=== PATIENT | female | born 1945 | race Two or more races ===

== ENCOUNTER 2021-12-10 08:00 | Outpatient (CLI) | payer OTHER ==
[~2021-12-10 08:00] MED LIST: AMARIL; CIPRO500 MG PO; CLONAZEPAM0.5 MG PO; DALMANE30 MG PO; ENALAPRIL MALE2.5 MG PO; ESTAZOLAM2 MG PO; GLUCOPHAGE XR500 MG; GLUCOPHAGE XR500 MG PO; LIPITOR40 MG PO; RISPERDAL1 MG PO; SIMVASTATIN20 MG PO; SYMBALTA; TENORMIN25 MG PO; [UNRECOGNIZED DRUG - OTHER]; [UNRECOGNIZED DRUG - OTHER]; [UNRECOGNIZED DRUG - OTHER]
== END 2021-12-10 08:30 | disposition home or self-care (01) ==
LOC: PPH VACUNA 08:00
PROVIDERS: ATTEND Emergency Medicine Pediatric Emergency Medicine
DX: Z23 Encounter for immunization (principal)

== ENCOUNTER 2022-05-30 08:18 | Emergency (ER) | payer OTHER ==
[~2022-05-30] VITALS: Ht 154.9 cm; Wt 65.8 kg
== END 2022-05-30 09:45 | disposition home or self-care (01) ==
LOC: ER 08:18
DX: M79.89 Other specified soft tissue disorders (principal)

== ENCOUNTER 2022-06-09 12:56 | Emergency (ER) | payer OTHER ==
[~2022-06-09] VITALS: Ht 154.9 cm; Wt 45.4 kg
== END 2022-06-09 13:59 | disposition home or self-care (01) ==
LOC: ER 12:56
DX: I73.9 Peripheral vascular disease, unspecified (principal); E11.9 Type 2 diabetes mellitus without complications; Z79.84 Long term (current) use of oral hypoglycemic drugs; I10 Essential (primary) hypertension

== ENCOUNTER → 2022-06-11 | Emergency (ER) | payer OTHER ==
[~2022-06-11] VITALS: Ht 170.2 cm; Wt 76.7 kg
== END | disposition left against medical advice (07) ==
LOC: ER 05:07
DX: L03.116 Cellulitis of left lower limb (principal); E11.9 Type 2 diabetes mellitus without complications; I10 Essential (primary) hypertension

== ENCOUNTER 2022-06-14 07:00 | Emergency (ER) | payer OTHER ==
[~2022-06-14] VITALS: Ht 162.6 cm; Wt 45.4 kg
[2022-06-14] MEDS ORDERED: MUPIROCIN15 GM TOP (13:39)
== END 2022-06-14 13:47 | disposition home or self-care (01) ==
LOC: ER 07:00
DX: N30.90 Cystitis, unspecified without hematuria (principal); K57.30 Diverticulosis of large intestine without perforation or abscess without bleeding; E11.9 Type 2 diabetes mellitus without complications; Z79.84 Long term (current) use of oral hypoglycemic drugs; I10 Essential (primary) hypertension; F32.9 Major depressive disorder, single episode, unspecified

== ENCOUNTER 2024-07-19 07:37 | Outpatient (CLI) | payer OTHER ==
[~2024-07-19 07:37] MED LIST changes: +CARAFATE1 GM PO; +MUPIROCIN15 GM TOP; +PEPCID AC20 MG PO
[2024-07-19 09:48] LABS: HEMOGLOBIN 12.3 g/dL (12.0-15.00); MEAN CELL VOLUME 90.5 fL (80.00-100.00); MEAN CORPUSCULAR HEMOGLOBIN 30.2 pg (27.00-32.0); MEAN CORPUSCULAR HGB CONC 33.3 g/dl (32.0-36.0); PLATELET COUNT 175 K/uL (150-450); RED BLOOD COUNT 4.09 M/uL (4.00-6.00); RED CELL DISTRIBUTION WIDTH 15.6 % (11.5-14.5)
[2024-07-19 10:11] LABS: PH,URINE 5.5 (5.0-8.0); URINE APPEARANCE Clear; URINE BILIRRUBIN Negative (NEGATIVE); URINE BLOOD Negative; URINE COLOR Yellow; URINE GLUCOSE Negative (NEGATIVE); URINE KETONE Negative (NEGATIVE); URINE LEUKOCYTE Small; URINE NITRATE Negative; URINE PROTEIN Negative (NEGATIVE)
[2024-07-19 10:15] LABS: URINE BACTERIA 1723.4 uL (0.0-1933); URINE EPITHELIAL CELLS 75.7 uL (0.0-38.8); URINE WBC 9.8 uL (0.0-23.2)
[2024-07-19 10:24] LABS: INR 1.16; PARTIAL THROMBOPLASTIN TIME 27.8 SECONDS (22.0-34.0); PROTHROMBIN TIME 12.5 SECONDS (9.0-11.5); URINE CAST 0.61 uL (0.0-1.40)
[2024-07-19 10:39] LABS: ALBUMIN 3.9 gm/dL (3.4-5.0); BILIRUBIN TOTAL 0.42 mg/dL (0.3-1.2); CALCIUM 9.1 mg/dL (8.5-10.1); CREATININE SERUM 0.94 mg/dL (0.55-1.02); GFR 57.59; GLOBULINA 3.4 G/DL (2.4-3.5); POTASSIUM 3.4 mEq/L (3.5-5.1); TOTAL PROTEIN 7.3 gm/dL (6.4-8.2)
[2024-07-19 10:48] LABS: COL EPI 123 SECONDS (82-175)
== END 2024-07-19 08:45 | disposition home or self-care (01) ==
LOC: LAB 07:37
PROVIDERS: ATTEND Orthopaedic Surgery
DX: D64.9 Anemia, unspecified (principal); E88.89 Other specified metabolic disorders; D68.8 Other specified coagulation defects; N39.0 Urinary tract infection, site not specified; Z22.322 Carrier or suspected carrier of Methicillin resistant Staphylococcus aureus; E11.9 Type 2 diabetes mellitus without complications; I10 Essential (primary) hypertension; Z76.89 Persons encountering health services in other specified circumstances

== ENCOUNTER 2024-07-26 13:49 | Outpatient (CLI) | payer OTHER ==
[2024-07-26 14:55] LABS: URINE APPEARANCE Cloudy; URINE BILIRRUBIN Negative (NEGATIVE); URINE BLOOD Trace; URINE COLOR Yellow; URINE GLUCOSE Negative (NEGATIVE); URINE KETONE Negative (NEGATIVE); URINE LEUKOCYTE Large; URINE NITRATE Negative; URINE PROTEIN Trace (NEGATIVE); URINE UROBILINOGEN 0.2 E.U./dl
[2024-07-26 14:56] LABS: URINE EPITHELIAL CELLS 187.9 uL (0.0-38.8); URINE RBC 31.9 uL (0.0-20.8); URINE WBC 204.8 uL (0.0-23.2)
[2024-07-26 15:10] LABS: INR 1.14; PARTIAL THROMBOPLASTIN TIME 25.8 SECONDS (22.0-34.0); PROTHROMBIN TIME 12.3 SECONDS (9.0-11.5)
[2024-07-26 15:13] LABS: URINE BACTERIA > 9821.5 uL (0.0-1933); URINE CRYSTALS FEW /HPF
[2024-07-26 15:14] LABS: URINE MUCUS SCANT
== END 2024-07-26 13:50 | disposition home or self-care (01) ==
LOC: LAB 13:49
PROVIDERS: ATTEND Orthopaedic Surgery
DX: N39.0 Urinary tract infection, site not specified (principal); D68.8 Other specified coagulation defects